=== PATIENT | female | born 1970 | race Caucasian/White ===

== ENCOUNTER 2017-07-02 17:35 | Emergency (ER) | payer BC, OTHER ==
[~2017-07-02] VITALS: Ht 170.2 cm; Wt 108.0 kg
[~2017-07-02 17:35] MED LIST: ABILIFY20 MG PO; ABILIFY30 MG PO; ADVAIR HFA120 INHALA IH; Advil,Nuprin,Motrin PO; CLEOCIN300 MG PO; COUMADIN4 MG PO; Coumadin,Jantoven PO; DUONEB 2.5-0.5 M3 ML IH; FLUOXETINE HCL20 MG PO; Habitrol,Nicoderm CQ TD; INDERAL20 MG PO; LEVOFLOXACIN500 MG PO; Levaquin PO; Lovenox SC; MAXALT10 MG PO; NEXIUM40 MG PO; NICOTINE PATCH1 EAC2 TD; NYSTATIN-TRIAMC15 GM TP; PERCOCET 5/31 TABLET PO; PREDNISONE20 MG PO; PROZAC20 MG PO; PROzac PO; ROBITUSSIN AC,T10 ML PO; SPIRIVA1 INHALATI IH; TOPIRAMATE100 MG PO; TOPIRAMATE200 MG PO; TRAZODONE HCL50 MG; TRAZODONE HCL50 MG PO; Topamax PO
[2017-07-02 18:25] LABS: MCH 30.7 PG (29.0-34.0); MCHC 33.4 G/DL (30.0-36.0); MCV 91.9 FL (83-99); RBC DIS.WIDTH-CV 13.2 % (11.8-14.6); RBC DIS.WIDTH-SD 45.1 % (39-53); RED BLOOD COUNT 4.79 M/uL (3.80-5.20); WHITE BLOOD COUNT 11.4 K/uL (4.1-10.2)
[2017-07-02 18:36] LABS: CHLORIDE 110 mEq/L (99-109); SODIUM 139 mEq/L (136-147)
[2017-07-02 18:38] LABS: GLUCOSE 103 mg/dL (70-99)
[2017-07-02 18:39] LABS: ANION GAP 12 MEQ/L (2-14)
[2017-07-02 18:40] LABS: TOTAL BILIRUBIN 0.5 mg/dL (0.0-1.0)
[2017-07-02 18:42] LABS: ALKALINE PHOSPHATASE 114 IU/L (3-129); GFR ESTIMATE (CALCULATED) > 59 mL/min/
[2017-07-02 18:43] LABS: UREA NITROGEN (BUN) 7 mg/dL (9-23)
[2017-07-02 18:45] LABS: LIPASE 30 U/L (1.0-51.0)
[2017-07-02 18:51] LABS: QUANTITATIVE HCG < 4.0 MIU/ML
[2017-07-02 18:59] LABS: MEAN PLAT.VOLUME 12.5 uM^3 (9.5-12.4); PLAT.SUFFICIENCY DECREASED; PLATELET COUNT 116 K/uL (156-360)
[2017-07-02 20:10] LABS: ADD MIUA? YES; BILIRUBIN NEGATIVE; BLOOD NEGATIVE; COLOR YELLOW ((YELLOW)); GLUCOSE (STRIP) NEGATIVE; KETONES NEGATIVE; LEUKOCYTES NEGATIVE; NITRITE NEGATIVE; PROTEIN (STRIP) NEGATIVE; UROBILINOGEN 0.2 MG/DL (0.2-1.0)
[2017-07-02 20:23] LABS: BACTERIA RARE /HPF; EPITHELIAL CELLS 4+ /HPF; MUCUS TRACE /LPF; RED BLOOD CELLS 0-5 /HPF (0-5); UCUL ADDED? NO; WHITE BLOOD CELLS 0-5 /HPF (0-5)
[2017-07-02] MEDS ORDERED: BENTYL20 MG PO (22:54)
[2017-07-02] MEDS ORDERED: NORCO 5/3251 TABLET PO (22:54)
[2017-07-02] MEDS ORDERED: FLAGYL500 MG PO (22:54)
[2017-07-02] MEDS ORDERED: CIPRO500 MG PO (22:54)
[2017-07-02] MEDS ORDERED: UNABLE TO RECALL (23:14)
[2017-07-02 23:26] VITALS: BP 125/73
== END 2017-07-02 23:28 | disposition home or self-care (01) ==
LOC: EME 17:35
DX: K52.9 Noninfective gastroenteritis and colitis, unspecified (principal); K76.0 Fatty (change of) liver, not elsewhere classified; E78.5 Hyperlipidemia, unspecified; K21.9 Gastro-esophageal reflux disease without esophagitis; F32.9 Major depressive disorder, single episode, unspecified; F41.9 Anxiety disorder, unspecified; Z86.711 Personal history of pulmonary embolism; F17.200 Nicotine dependence, unspecified, uncomplicated; Z90.710 Acquired absence of both cervix and uterus; E66.9 Obesity, unspecified; Z68.37 Body mass index [BMI] 37.0-37.9, adult
CPT/HCPCS: 74177; 80053; 81003; 83690; 84702; 85027; J1885; J2270; J7040